=== PATIENT | female | born 2000 | race Caucasian/White ===

== ENCOUNTER 2018-08-20 21:46 | Emergency (ER) | payer OTHER ==
[~2018-08-20] VITALS: Ht 172.7 cm; Wt 96.8 kg
[2018-08-20 22:03] VITALS: Ht 172.7 cm; Wt 96.8 kg
[2018-08-21] MEDS ORDERED: CLOT30CR24 TOP (01:05)
--- NOTE | 2018-08-21 01:10 | ERD ---
ER Documentation Chief Complaint Chief Complaint Dysuria, R pinky pain X 2 days HPI Patient is a 17-year-old female who presents the ER for multiple complaints. Patient states she has had dysuria for the last 2 to 3 days. Patient is concerned she may have a UTI. She denies any abdominal pain, flank pain, fevers, chills, nausea or vomiting. Patient also states that she has right fifth digit pain. She denies any trauma or falls. Patient states she has trouble bending her finger. Patient is right-hand dominant. Patient also reports ringworm lesions on her right arm. Patient has previous history of ringworm. ROS All systems reviewed and are negative except as per history of present illness. Medications Home Meds Active Scripts Clotrimazole* (Clotrimazole* AF) 1% - 30 Gm Cream.gm., 1 APPLIC TOP BID for 7 Days, TUB Prov:DIRK HODGSON PA-C 08/21/18 Allergies Allergies: Coded Allergies: No Known Allergy (Unverified , 08/20/18) PMhx/Soc Medical and Surgical Hx: pt denies Medical Hx, pt denies Surgical Hx Hx Alcohol Use: No Hx Substance Use: No Hx Tobacco Use: No Smoking Status: Never smoker FmHx Family History: No diabetes Physical Exam Vitals Vital Signs Date Temp Pulse Resp B/P (MAP) Pulse Ox O2 O2 Flow FiO2 Time Delivery Rate 08/20/18 99.1 73 18 141/88 96 22:03 (105) Physical Exam GENERAL: Well-developed, well-nourished female. Appears in no acute distress. HEAD: Normocephalic, atraumatic. EYES: Pupils are equally reactive bilaterally. EOMs grossly intact. No conjunctival erythema. NECK: Supple. No meningismus. Normal range of motion of the neck. LUNG: Clear to auscultation bilaterally. No rhonchi, wheezing, rales or coarse breath sounds. HEART: Regular rate and rhythm. No murmurs, rubs or gallops. EXTREMITIES: Equal pulses bilaterally. No peripheral clubbing, cyanosis or edema. No unilateral leg swelling. NEUROLOGIC: Alert and oriented. Moving all four extremities without any difficulty. Normal speech. Steady gait. SKIN: Circular patches consistent with ringworm are noted on the patient's right upper arm and axilla. Results 24 hrs Laboratory Tests Test 08/20/18 23:57 08/20/18 23:58 Bedside Urine pH (LAB) 7.0 Bedside Urine Protein (LAB) Negative Bedside Urine Glucose (UA) Negative Bedside Urine Ketones (LAB) Negative Bedside Urine Blood Negative Bedside Urine Nitrite (LAB) Negative Bedside Urine Leukocyte Esterase (L Negative POC Beta HCG, Qualitative NEGATIVE Procedures/MDM MEDICAL DECISION MAKING: Patient is a 17-year-old female presents the ER for concerns of multiple complaints. Patient reports dysuria and is concerned she may have a UTI. Patient also reports right fifth digit pinky pain. She denies any falls or trauma. Patient is also here for ringworm rash. Vital signs were reviewed. Patient is afebrile. Patient was not hypoxic. Patient was hemodynamically stable. Urine negative for acute infection. test was negative. Low suspicion for UTI, pyonephritis, nephrolithiasis, , ectopic . X-ray imaging of the affected digit was unremarkable. Low suspicion for fracture dislocation. Patient will be given clotrimazole cream for her ringworm rash. PRESCRIPTION: Clotrimazole DISCHARGE: At this time, patient is stable for discharge and outpatient management. I have instructed the patient to follow-up with his/her primary care physician in 1-2 days. I have discussed with the patient the possibility of needing to see a specialist for further workup and imaging studies if symptoms persist. I have instructed the patient to promptly return to the ER for any new or worsening symptoms including increased pain, fever, nausea, vomiting, weakness or LOC. The patient and/or family expressed understanding of and agreement with this plan. All questions were answered. Home care instructions were provided. Disclaimer: Inadvertent spelling and grammatical errors are likely due to EHR/dictation software use and do not reflect on the overall quality of patient care. Also, please note that the electronic time recorded on this note does not necessarily reflect the actual time of the patient encounter. Departure Diagnosis: Primary Impression: Finger pain Laterality: unspecified laterality Qualified Codes: M79.646 - Pain in unspecified finger(s) Additional Impression: Ringworm Condition: Fair Patient Instructions: Sprain Finger Referrals: COMM[facility] YOU HAVE RECEIVED A MEDICAL SCREENING EXAM AND THE RESULTS INDICATE THAT YOU DO NOT HAVE A CONDITION THAT REQUIRES URGENT TREATMENT IN THE EMERGENCY DEPARTMENT. FURTHER EVALUATION AND TREATMENT OF YOUR CONDITION CAN WAIT UNTIL YOU ARE SEEN IN YOUR DOCTORS OFFICE WITHIN THE NEXT 1-2 DAYS. IT IS YOUR RESPONSIBILITY TO MAKE AN APPOINTMENT FOR FOLOW-UP CARE. IF YOU HAVE A PRIMARY DOCTOR --you should call your primary doctor and schedule an appointment IF YOU DO NOT HAVE A PRIMARY DOCTOR YOU CAN CALL OUR PHYSICIAN REFERRAL HOTLINE AT IF YOU CAN NOT AFFORD TO SEE A PHYSICIAN YOU CAN CHOSE FROM THE FOLLOWING [facility] [address] [facility] [address] [facility] [address] [facility] [address] [facility] [address] [facility] [facility] [address] [facility] [facility] YOU HAVE RECEIVED A MEDICAL SCREENING EXAM AND THE RESULTS INDICATE THAT YOU DO NOT HAVE A CONDITION THAT REQUIRES URGENT TREATMENT IN THE EMERGENCY DEPARTMENT. FURTHER EVALUATION AND TREATMENT OF YOUR CONDITION CAN WAIT UNTIL YOU ARE SEEN IN YOUR DOCTORS OFFICE WITHIN THE NEXT 1-2 DAYS. IT IS YOUR RESPONSIBILITY TO MAKE AN APPOINTMENT FOR FOLOW-UP CARE. IF YOU HAVE A PRIMARY DOCTOR --you should call your primary doctor and schedule and appointment IF YOU DO NOT HAVE A PRIMARY DOCTOR YOU CAN CALL OUR PHYSICIAN REFERRAL HOTLINE AT . IF YOU CAN NOT AFFORD TO SEE A PHYSICIAN YOU CAN CHOSE FROM THE FOLLOWING [facility]: [facility] [address] [place] [address] [facility] [address] [place] [address] [facility] + [facility] [address] [place] [address] Additional Instructions: Call your primary care doctor TOMORROW for an appointment during the next 1-2 days.See the doctor sooner or return here if your condition worsens before your appointment time. DIRK HODGSON PA-C Aug 21, 2018 01:10
[2018-08-21 01:13] VITALS: BP 123/75; PULSE 63; RESP 18
== END 2018-08-21 01:14 | disposition home or self-care (01) ==
LOC: FTE 21:46
DX: M79.644 Pain in right finger(s) (principal); B35.2 Tinea manuum
CPT/HCPCS: 29130; 73140; 81003; 81025; Z7502